=== PATIENT | male | born 1970 | race Caucasian/White ===

== ENCOUNTER 2018-06-26 08:47 | Emergency (ER) | payer SELFPAY ==
[~2018-06-26] VITALS: Ht 170.2 cm; Wt 65.0 kg
[2018-06-26 08:55] VITALS: Ht 170.2 cm; Wt 65.0 kg
[2018-06-26] MEDS ORDERED: OLANZAPINE (ODT) 5 MG TAB PO STA (09:08)
--- NOTE | 2018-06-26 12:18 | PSY ---
Date/Time of Note Date/Time of Note DATE: 06/26/18 TIME: 12:05 Psychiatric Subjective Eval Subjective Evaluation Chief Complaint: BIB RA WITH [employer] FOR EVAL OF PSYCH. PT BANGING ON PEOPLE'S DOOR. CONFUSED Reason for consult: Confused behavior, baning on people's door. History of present illness Brought in by police for banging on people's door on a 5150. The patient was confused, threatening and uncooperative. He did not present as a reliable informant. He said that he was jogging, and fell down. He said that he has a psychiatrist. He has been treated for about 4 months. He said that he has a history of problems with alcohol and cocaine. He denies hallucinations or delusions. Past psychiatric history He said that he has been under psychiatric care for about 4 months. He denied any prior psychiatric admission. There are no prior visits noted in the EMR. He denies any history of suicide attempts. Hospitalization: no Family History Denies. Substance Abuse Substance abuse history: Yes Prior substance abuse treatmen: No (Alcohol and cocaine. ) Social History Occupation/Intermediate: self employed. Psychiatric Objective Eval Review of Systems: Constitutional: Normal Eyes: Normal ENT: Normal Neck: Normal Respiratory: Normal Chest/Breast: Normal Cardiovascular: Normal GI: Normal Genitourinary: Normal Skin: Normal Lymphatic: Normal Musculoskeletal: Normal Neurological: Normal Other: Laceration on his face. Physical Examination: Physical Examination: Not Applicable Appetite: Adequate Energy: Adequate Interest: Adequate Mental Status Examination: Appearance: Disheveled Eye Contact: Poor Psychomotor Activity: Slow Behavior: Guarded Speech: Clear AFFECT: Flat, Constricted Mood: Irritable Though Process: Loose Thought Content: Delusions Suicidal: No Homicidal: No On 72 hour hold: Yes Orientation: x2 Cognition: Drowsy Insight: Impared Judgement: Impared Attention Span: Distractible Laboratory Results Laboratory Tests Test 06/26/18 10:15 White Blood Count 15.8 10^3/ul Red Blood Count 6.11 10^6/ul Hemoglobin 18.5 g/dl Hematocrit 55.0 % Mean Corpuscular Volume 90.0 fl Mean Corpuscular Hemoglobin 30.3 pg Mean Corpuscular Hemoglobin Concent 33.6 g/dl Red Cell Distribution Width 13.7 % Platelet Count 264 10^3/UL Mean Platelet Volume 9.1 fl Immature Granulocytes % 0.400 % Neutrophils % 83.2 % Lymphocytes % 9.5 % Monocytes % 6.2 % Eosinophils % 0.4 % Basophils % 0.3 % Nucleated Red Blood Cells % 0.0 /100WBC Immature Granulocytes # 0.060 10^3/ul Neutrophils # 13.2 10^3/ul Lymphocytes # 1.5 10^3/ul Monocytes # 1.0 10^3/ul Eosinophils # 0.1 10^3/ul Basophils # 0.1 10^3/ul Nucleated Red Blood Cells # 0.0 10^3/ul Sodium Level 139 mmol/L Potassium Level 4.0 mmol/L Chloride Level 104 mmol/L Carbon Dioxide Level 27 mmol/L Anion Gap 8 Blood Urea Nitrogen 17 mg/dl Creatinine 0.85 mg/dl Est Glomerular Filtrat Rate mL/min > 60 mL/min Glucose Level 93 mg/dl Calcium Level 9.7 mg/dl Total Bilirubin 0.4 mg/dl Direct Bilirubin 0.00 mg/dl Indirect Bilirubin 0.4 mg/dl Aspartate Amino Transf (AST/SGOT) 100 IU/L Alanine Aminotransferase (ALT/SGPT) 74 IU/L Alkaline Phosphatase 70 IU/L Total Protein 7.6 g/dl Albumin 4.3 g/dl Globulin 3.30 g/dl Albumin/Globulin Ratio 1.30 Salicylates Level < 1.0 mg/dl Acetaminophen Level < 10.0 ug/ml Ethyl Alcohol Level < 10.0 mg/dl Assessment and Plan Assessment/Diagnosis Diagnosis Acute confusional state. Psychosis NOS F29 Recommendation/Plan Medication Management Olanzapine 5mg po/im prn agiatation or delusions. Discharge Disposition: Psychiatric inpatient Legal Status: Continue involuntary hold DOMINIQUE TYLER MD Jun 26, 2018 12:15
--- NOTE | 2018-06-26 12:32 | ERD ---
ER Documentation Chief Complaint Chief Complaint BIB RA WITH [employer] FOR EVAL OF PSYCH. PT BANGING ON PEOPLE'S DOOR. CONFUSED HPI Patient is a 48-year-old male who presents altered. He was brought in by ambulance and police. Police wrote a 5150 hold as the patient was agitated and was banging on random people's doors. He had trauma next to the left lateral eye. Please note history and physical exam is limited secondary to the pa tiekvng's mental status. ROS All systems reviewed and are negative except as per history of present illness. Medications Home Meds Unable to Obtain Active Prescriptions or Reported Meds PMhx/Soc Medical and Surgical Hx: Unable to obtain FmHx Unable to obtain Family History: coronary disease Physical Exam Vitals Vital Signs Date Temp Pulse Resp B/P (MAP) Pulse Ox O2 O2 Flow FiO2 Time Delivery Rate 06/26/18 97.3 78 16 138/72 99 08:55 (94) Physical Exam Const: Altered Head: Atraumatic Eyes: Abrasion of the left lateral eye ENT: Normal External Ears, Nose and Mouth. Neck: Full range of motion. No meningismus. Resp: Clear to auscultation bilaterally Cardio: Regular rate and rhythm, no murmurs Abd: Soft, non tender, non distended. Normal bowel sounds Skin: Abrasion to left lateral eye Back: No midline or flank tenderness Ext: No cyanosis, or edema Neur: Altered, not responding to commands at this time, protecting own airway and breathing on own Result Diagram: 06/26/18 1015 06/26/18 1015 Results 24 hrs Laboratory Tests Test 06/26/18 10:15 06/26/18 11:51 White Blood Count 15.8 10^3/ul Red Blood Count 6.11 10^6/ul Hemoglobin 18.5 g/dl Hematocrit 55.0 % Mean Corpuscular Volume 90.0 fl Mean Corpuscular Hemoglobin 30.3 pg Mean Corpuscular Hemoglobin Concent 33.6 g/dl Red Cell Distribution Width 13.7 % Platelet Count 264 10^3/UL Mean Platelet Volume 9.1 fl Immature Granulocytes % 0.400 % Neutrophils % 83.2 % Lymphocytes % 9.5 % Monocytes % 6.2 % Eosinophils % 0.4 % Basophils % 0.3 % Nucleated Red Blood Cells % 0.0 /100WBC Immature Granulocytes # 0.060 10^3/ul Neutrophils # 13.2 10^3/ul Lymphocytes # 1.5 10^3/ul Monocytes # 1.0 10^3/ul Eosinophils # 0.1 10^3/ul Basophils # 0.1 10^3/ul Nucleated Red Blood Cells # 0.0 10^3/ul Sodium Level 139 mmol/L Potassium Level 4.0 mmol/L Chloride Level 104 mmol/L Carbon Dioxide Level 27 mmol/L Anion Gap 8 Blood Urea Nitrogen 17 mg/dl Creatinine 0.85 mg/dl Est Glomerular Filtrat Rate mL/min > 60 mL/min Glucose Level 93 mg/dl Calcium Level 9.7 mg/dl Total Bilirubin 0.4 mg/dl Direct Bilirubin 0.00 mg/dl Indirect Bilirubin 0.4 mg/dl Aspartate Amino Transf (AST/SGOT) 100 IU/L Alanine Aminotransferase (ALT/SGPT) 74 IU/L Alkaline Phosphatase 70 IU/L Total Protein 7.6 g/dl Albumin 4.3 g/dl Globulin 3.30 g/dl Albumin/Globulin Ratio 1.30 Salicylates Level < 1.0 mg/dl Acetaminophen Level < 10.0 ug/ml Ethyl Alcohol Level < 10.0 mg/dl Urine Color YELLOW Urine Clarity SLIGHTLY CLOUDY Urine pH 6.0 Urine Specific [place] 1.021 Urine Ketones 1+ mg/dL Urine Nitrite NEGATIVE mg/dL Urine Bilirubin NEGATIVE mg/dL Urine Urobilinogen 1+ mg/dL Urine Leukocyte Esterase NEGATIVE Adrien/ul Urine Microscopic RBC 18 /HPF Urine Microscopic WBC 1 /HPF Urine Bacteria FEW /HPF Urine Mucus FEW /HPF Urine Hemoglobin NEGATIVE mg/dL Urine Glucose NEGATIVE mg/dL Urine Total Protein NEGATIVE mg/dl Current Medications Medications Dose Sig/Bhavya Start Time Status Last (Trade) Ordered Route PRN Stop Time Admin Dose Reason Admin Olanzapine 5 mg ONCE STAT 06/26/18 DC (Zyprexa PO 09:08 Zydis) 06/26/18 09:10 Procedures/MDM CT brain negative for acute injury per radiology. Patient is a 48-year-old male who presents altered. The patient was placed on a 5150 hold by police. Laboratory studies are basically normal. Urine drug screen is pending. The patient was seen by psychiatry who recommended a 5150 hold. The patient can be given Zyprexa as needed. I see no organic etiology at this time for his altered mental status such as intracranial hemorrhage or mass. The patient is in the emergency department pending accepting facility for transfer for psych. Critical Care: Time: 35 minutes excluding all billable procedures. Treatments/Evaluations: Close monitoring and treatment of unstable vital signs, cardiorespiratory, and neurologic status, while maintaining tight balance of fluid, respiratory, and cardiac interventions. Departure Diagnosis: Primary Impression: Encephalopathy Additional Impression: Psychosis Psychosis type: unspecified psychosis type Qualified Codes: F29 - Unspecified psychosis not due to a substance or known physiological condition Condition: TRACY Stubbs MD Jun 26, 2018 12:32
[2018-06-26 17:05] VITALS: BP 122/77; PULSE 72; RESP 16
== END 2018-06-26 17:00 ==
LOC: E/R 08:47
DX: G93.40 Encephalopathy, unspecified (principal); F29 Unspecified psychosis not due to a substance or known physiological condition
CPT/HCPCS: 70450; 80053; 80307; 81001; 81003; 85025